=== PATIENT | female | born 1985 | race Caucasian/White ===

== ENCOUNTER 2019-03-04 13:12 | Day surgery (SDC) | payer BC, OTHER ==
[~2019-03-04] VITALS: Ht 160 cm; Wt 47.0 kg
[2019-03-04] MEDS ORDERED: LIDOCAINE/PF 2% 5 ML VIAL IM ONE (13:13)
[2019-03-04] MEDS ORDERED: PROPOFOL 1% 20 ML VIAL IVP ONE (13:13)
[2019-03-04] MEDS ORDERED: SODIUM CHLORIDE 0.9% 1,000 ML ONE (13:23)
[2019-03-04] MEDS ORDERED: SODIUM CHLORIDE 0.9% 1,000 ML IV ONE (13:30)
[2019-03-04] MEDS ORDERED: VITAD400 GT (13:40)
[2019-03-04] MEDS ORDERED: ALPR0.5T8 GT (13:40)
[2019-03-04] MEDS ORDERED: MULT1CAP32 GT (13:40)
[2019-03-04] MEDS ORDERED: MELA1TAB8 PO (13:40)
[2019-03-04] MEDS ORDERED: BUSP5TAB20 GT (13:40)
[2019-03-04] MEDS ORDERED: CYAN50008 GT (13:40)
[2019-03-04] MEDS ORDERED: OLAN10TA3 GT (13:40)
[2019-03-04] MEDS ORDERED: PARO20TA24 GT (13:40)
[2019-03-04] MEDS ORDERED: RANI150T7 GT (13:40)
[2019-03-04] MEDS ORDERED: CLON0.2T GT (13:40)
[2019-03-04] MEDS ORDERED: FOLI1 GT (13:40)
== END 2019-03-04 17:20 | disposition home or self-care (01) ==
LOC: SURGERY 13:12
PROVIDERS: ATTEND Internal Medicine Gastroenterology
DX: R13.10 Dysphagia, unspecified (principal); K29.50 Unspecified chronic gastritis without bleeding; G40.909 Epilepsy, unspecified, not intractable, without status epilepticus; R97.8 Other abnormal tumor markers; Z79.899 Other long term (current) drug therapy
CPT/HCPCS: 36415; 43239; 43246; 84702; 88305; 88312; 88313; C1769; J2704; J3490; J7030

== ENCOUNTER 2020-10-22 06:36 | Day surgery (SDC) | payer BC, OTHER ==
[~2020-10-22] VITALS: Ht 160 cm; Wt 47.7 kg
[~2020-10-22 06:36] MED LIST: BISA-151 RC; BUSP5TAB20 GT; CHOL400T56 GT; CLON-592 GT; CLON0.1T2 GT; CYAN50009 GT; DIAZ1KIT2 RC; DOCU-350 GT; FAMO20 GT; FELB600T6 GT; FERSL GT; FOLI-130 GT; GABA-1181 GT; MELA1TAB52 PO; MULT1CAP32 GT; OLAN10TA74 GT; PARO-38 GT; POLY119P17 GT; RINGERS SOLUTION,LACTATED 1,000 ML IV ONE
[2020-10-22] MEDS ORDERED: SUCCINYLCHOLINE CHLORIDE 20 MG/ML 10 ML VIAL IVP ONE (06:37)
[2020-10-22] MEDS ORDERED: ONDANSETRON HCL 4 MG/2 ML VIAL IVP ONE (06:37)
[2020-10-22] MEDS ORDERED: DEXAMETHASONE SOD PHOS 4 MG/ML VIAL IVP ONE (06:37)
[2020-10-22] MEDS ORDERED: FentaNYL CITRATE PF 100 MCG/2 ML VIAL IVP ONE (06:37)
[2020-10-22] MEDS ORDERED: PROPOFOL 1% 20 ML VIAL IVP ONE (06:37)
[2020-10-22 07:19] LABS: COVID AG,FIA SOURCE NASOPHARYNGEAL
[2020-10-22 07:24] LABS: BASOPHILS % (AUTO) 1.1 % (0.0-2.0); EOSINOPHILS % (AUTO) 5.3 % (1.0-6.0); HEMATOCRIT 40.2 % (36-46); HEMOGLOBIN 13.5 g/dL (12.0-16.0); LYMPHOCYTES # (AUTO) 1.2 K/uL (1.0-4.8); LYMPHOCYTES % (AUTO) 34.7 % (22.0-44.0); MEAN CORPUSCULAR HGB CONC 33.6 G/dL (31.0-37.0); MEAN CORPUSCULAR VOLUME 101 fL (80-100); MONOCYTES # (AUTO) 0.2 K/uL (0.1-1.0); MONOCYTES % (AUTO) 6.5 % (2.0-9.0); NEUTROPHILS # (AUTO) 1.9 K/uL (1.8-7.7); NEUTROPHILS % (AUTO) 52.4 % (40.0-70.0); PLATELET COUNT (AUTO) 197 K/uL (150-450); RED BLOOD CELL COUNT(AUTO) 3.97 MIL/uL (4.00-5.20); RED CELL DISTRIBUTION WIDTH 12.5 % (11.5-14.5)
[2020-10-22] MEDS ORDERED: HYDROmorphone 2 MG/ML VIAL IVP PRN (07:30)
[2020-10-22] MEDS ORDERED: FentaNYL CITRATE PF 100 MCG/2 ML VIAL IVP PRN (07:30)
[2020-10-22] MEDS ORDERED: MEPERIDINE-PF 25 MG/ML VIAL IVP PRN (07:30)
[2020-10-22 07:36] LABS: PROTHROMBIN TIME 11.1 SEC (9.4-11.6)
[2020-10-22 07:42] LABS: ANION GAP 6 mmol/L (8-16); CALCIUM, TOTAL 9.3 mg/dL (8.8-10.5); CARBON DIOXIDE 32 mmol/L (22-29); CHLORIDE 105 mmol/L (98-107); CREATININE 0.85 mg/dL (0.60-1.30); GLOMERULAR FILTR. RATE CALC > 60 mL/min (>60); GLUCOSE,RANDOM 101 mg/dL (70-110); POTASSIUM 4.2 mmol/L (3.5-5.1); SODIUM SERUM 143 mmol/L (136-145); UREA NITROGEN, BLOOD 25 mg/dL (7-18)
[2020-10-22] MEDS ORDERED: AMPICILLIN SODIUM 2 GM/NS 100 ML IV ONE (07:45)
[2020-10-22 07:55] LABS: ALBUMIN 3.8 g/dL (3.4-5.0); ALKALINE PHOSPHATASE 85 U/L (46-116); ASPARTATE AMINOTRANSFERASE 31 U/L (15-37); BILIRUBIN,TOTAL 0.4 mg/dL (0.1-1.0); TOTAL PROTEIN, SERUM 7.8 g/dL (6.4-8.2)
[2020-10-22 08:34] LABS: ALANINE AMINOTRANSFERASE 58 U/L (12-78); HCG,QUANTITATIVE < 1 mIU/mL (0-6)
== END 2020-10-22 12:20 | disposition home or self-care (01) ==
LOC: SURGERY 06:36
PROVIDERS: ATTEND Dentist General Practice
DX: K02.9 Dental caries, unspecified (principal); K05.30 Chronic periodontitis, unspecified; G80.9 Cerebral palsy, unspecified; K21.9 Gastro-esophageal reflux disease without esophagitis; K03.9 Disease of hard tissues of teeth, unspecified; G40.909 Epilepsy, unspecified, not intractable, without status epilepticus; Z98.890 Other specified postprocedural states; Z79.899 Other long term (current) drug therapy; Z79.01 Long term (current) use of anticoagulants; I10 Essential (primary) hypertension
CPT/HCPCS: 36415; 41899; 71045; 80053; 84702; 85025; 85610; 85730; 87426; 93005; C9803; J0290; J0330; J1100; J2405; J2704; J3010; J7120

== ENCOUNTER 2023-02-16 06:04 | Day surgery (SDC) | payer OTHER, BC ==
[~2023-02-16] VITALS: Ht 160 cm; Wt 51.3 kg
[~2023-02-16 06:04] MED LIST changes: -DOCU-350 GT; +DOCU-412 GT; +FERR300L GT; -FERSL GT; -RINGERS SOLUTION,LACTATED 1,000 ML IV ONE
[2023-02-16] MEDS ORDERED: RINGERS SOLUTION,LACTATED 0 ML IV ONE (06:24)
[2023-02-16] MEDS ORDERED: RINGERS SOLUTION,LACTATED 1,000 ML IV ONE ×3 (06:30→09:52)
[2023-02-16] MEDS ORDERED: AMPICILLIN SODIUM 2 GM/NS 100 ML IV ONE (07:27)
[2023-02-16 07:41] LABS: BASOPHILS % (AUTO) 0.2 % (0.0-2.0); EOSINOPHILS % (AUTO) 2.4 % (1.0-6.0); HEMATOCRIT 36.2 % (36-46); HEMOGLOBIN 12.4 g/dL (12.0-16.0); LYMPHOCYTES # (AUTO) 0.8 K/uL (1.0-4.8); LYMPHOCYTES % (AUTO) 13.9 % (22.0-44.0); MEAN CORPUSCULAR HEMOGLOBIN 35.7 pg (26.0-34.0); MEAN CORPUSCULAR HGB CONC 34.1 G/dL (31.0-37.0); MEAN CORPUSCULAR VOLUME 105 fL (80-100); MONOCYTES # (AUTO) 0.4 K/uL (0.1-1.0); MONOCYTES % (AUTO) 6.5 % (2.0-9.0); NEUTROPHILS # (AUTO) 4.7 K/uL (1.8-7.7); PLATELET COUNT (AUTO) 194 K/uL (150-450); RED BLOOD CELL COUNT(AUTO) 3.46 MIL/uL (4.00-5.20); RED CELL DISTRIBUTION WIDTH 12.3 % (11.5-14.5); WHITE BLOOD COUNT (AUTO) 6.1 K/uL (4.5-11.0)
[2023-02-16 07:56] LABS: PROTHROMBIN TIME 10.9 SEC (9.4-11.6)
[2023-02-16 08:11] LABS: ANION GAP 9 mmol/L (8-16); CALCIUM, TOTAL 9.1 mg/dL (8.8-10.5); CARBON DIOXIDE 31 mmol/L (22-29); CHLORIDE 106 mmol/L (98-107); CREATININE 0.74 mg/dL (0.60-1.30); GLOMERULAR FILTR. RATE CALC > 60 mL/min (>60); GLUCOSE,RANDOM 94 mg/dL (70-110); POTASSIUM 3.7 mmol/L (3.5-5.1); SODIUM SERUM 146 mmol/L (136-145); UREA NITROGEN, BLOOD 14 mg/dL (7-18)
[2023-02-16 08:16] LABS: ALANINE AMINOTRANSFERASE 47 U/L (12-78); ALBUMIN 3.5 g/dL (3.4-5.0); ALKALINE PHOSPHATASE 139 U/L (46-116); ASPARTATE AMINOTRANSFERASE 34 U/L (15-37); BILIRUBIN,TOTAL 0.5 mg/dL (0.1-1.0); TOTAL PROTEIN, SERUM 7.5 g/dL (6.4-8.2)
[2023-02-16] MEDS ORDERED: SODIUM CHLORIDE 0.9% 0 ML ONE (08:30)
[2023-02-16] MEDS ORDERED: PROPOFOL 1% 20 ML VIAL IVP ONE (12:00)
[2023-02-16] MEDS ORDERED: LIDOCAINE/PF 2% 5 ML SYRINGE IVP ONE (12:00)
[2023-02-16] MEDS ORDERED: ONDANSETRON HCL 4 MG/2 ML VIAL IVP ONE (12:00)
[2023-02-16] MEDS ORDERED: ROCURONIUM BROMIDE 10 MG/ML 5 ML VIAL IVP ONE (12:00)
== END 2023-02-16 12:15 | disposition home or self-care (01) ==
LOC: SURGERY 06:04
PROVIDERS: ATTEND Dentist General Practice
DX: K05.30 Chronic periodontitis, unspecified (principal); K02.9 Dental caries, unspecified; K03.6 Deposits [accretions] on teeth; I10 Essential (primary) hypertension; K21.9 Gastro-esophageal reflux disease without esophagitis; G43.909 Migraine, unspecified, not intractable, without status migrainosus; G80.9 Cerebral palsy, unspecified; Z79.01 Long term (current) use of anticoagulants; Z79.899 Other long term (current) drug therapy; Z98.890 Other specified postprocedural states
CPT/HCPCS: 41899; 71045; 80053; 84703; 85025; 85610; 85730; 36415; 93005; J0290; J2704; J2405; J3490 ×2; J7120; J7030